=== PATIENT | male | born 1960 | race Caucasian/White ===

== ENCOUNTER 2017-01-26 10:44 | Inpatient (IN) | payer BC, MEDICAID ==
[2017-01-26] VITALS (15 sets, daily range): BP systolic 88–150; BP diastolic 46–77
[~2017-01-26] VITALS: Ht 175.3 cm; Wt 84.2 kg
[~2017-01-26 10:44] MED LIST: AUD NEB; BISA10S PR; FURO20 PO; INSNOV SQ; INSU100V12 SQ; IPRNEB IH; LACT30L PO; LORA0.5T2 PO; METO25XL PO; MOM30 PO; ONDA4 PO; PRED20 PO; SPIR25 PO; [UNRECOGNIZED DRUG - CODE] PO
[2017-01-26] MEDS ORDERED: PANTOPRAZOLE SODIUM 40 MG/VIAL IVP ONE (11:15)
[2017-01-26] MEDS ORDERED: SODIUM CHLORIDE 0.9% 1,000 ML IV ONE (11:15)
[2017-01-26 11:23] LABS: EOSINOPHILS % (AUTO) 0.1 % (1.0-6.0); HEMATOCRIT 22.7 % (41-53); HEMOGLOBIN 7.8 g/dL (13.5-17.5); LYMPHOCYTES # (AUTO) 1.4 K/uL (1.0-4.8); LYMPHOCYTES % (AUTO) 9.3 % (22.0-44.0); MEAN CORPUSCULAR HEMOGLOBIN 33.9 pg (26.0-34.0); MEAN CORPUSCULAR HGB CONC 34.3 G/dL (31.0-37.0); MEAN CORPUSCULAR VOLUME 99 fL (80-100); MONOCYTES # (AUTO) 1.3 K/uL (0.1-1.0); MONOCYTES % (AUTO) 8.4 % (2.0-9.0); NEUTROPHILS # (AUTO) 12.6 K/uL (1.8-7.7); NEUTROPHILS % (AUTO) 82.2 % (40.0-70.0); PLATELET COUNT (AUTO) 83 K/uL (150-450); RED CELL DISTRIBUTION WIDTH 19.8 % (11.5-14.5); WHITE BLOOD COUNT (AUTO) 15.3 K/uL (4.5-11.0)
[2017-01-26 11:24] LABS: RBC MORPHOLOGY COMMENT ABNORMAL RBC MORPH
[2017-01-26 11:37] LABS: INR 1.9 (0.9-1.1); PROTHROMBIN TIME 20.4 SEC (9.4-11.6)
[2017-01-26 11:38] LABS: ALBUMIN 1.6 g/dL (3.4-5.0); BILIRUBIN,TOTAL 6.9 mg/dL (0.1-1.0); CALCIUM, TOTAL 7.6 mg/dL (8.8-10.5); CREATININE 1.4 mg/dL (0.60-1.30); POTASSIUM 5.2 mmol/L (3.5-5.1)
[2017-01-26] MEDS ORDERED: ACETAMINOPHEN 325 MG TABLET PO PRN (13:00)
[2017-01-26] MEDS ORDERED: ONDANSETRON HCL 4 MG/2 ML VIAL IVP PRN ×2 (13:00→16:45)
[2017-01-26] MEDS ORDERED: 0.9% SODIUM CHLORIDE 10 ML SYRINGE IVP PRN (13:00)
[2017-01-26] MEDS ORDERED: DEXTROSE 50%-WATER 25 GM/50 ML SYRINGE IVP PRN (15:45)
[2017-01-26] MEDS ORDERED: ALBUTEROL SULFATE 2.5 MG/0.5 ML NEB SOLUTION NEB PRN (16:45)
[2017-01-26] MEDS ORDERED: ZOLPIDEM TARTRATE 5 MG TABLET PO PRN (16:45)
[2017-01-26] MEDS ORDERED: BISACODYL 10 MG RECTAL RECTAL SUPPOSITORY PR PRN (16:45)
[2017-01-26] MEDS ORDERED: MAGNESIUM HYDROXIDE SUSPENSION 30 ML UDCUP PO PRN (16:45)
[2017-01-26] MEDS ORDERED: IPRATROPIUM BROMIDE 0.5 MG/2.5 ML NEB SOLUTION NEB PRN (16:45)
[2017-01-26] MEDS ORDERED: SODIUM CHLORIDE 0.9% 250 ML IV ONE ×2 (17:15→17:47)
[2017-01-26] MEDS: PANTOPRAZOLE SODIUM 80 MG in SODIUM CHLORIDE 0.9% 100 ML IV SCH (17:22)
[2017-01-26] MEDS: INSULIN ASPART 100 UNITS/ML SQ PRN ×2 (17:25→21:44)
[2017-01-26] MEDS: CIPROFLOXACIN 400 MG/D5% WATER 200 ML IV SCH (17:46)
[2017-01-26] MEDS: OCTREOTIDE ACETATE 500 MCG in DEXTROSE 5%-WATER 97.5 ML IV SCH (17:46)
[2017-01-26] MEDS ORDERED: DiphenhydrAMINE HCL 50 MG/ML VIAL IVP ONE (18:00)
[2017-01-26 18:13] LABS: EOSINOPHILS % (AUTO) 0 % (1.0-6.0); HEMATOCRIT 21.8 % (41-53); HEMOGLOBIN 7.4 g/dL (13.5-17.5); LYMPHOCYTES # (AUTO) 1.3 K/uL (1.0-4.8); LYMPHOCYTES % (AUTO) 8.3 % (22.0-44.0); MEAN CORPUSCULAR HEMOGLOBIN 33.9 pg (26.0-34.0); MEAN CORPUSCULAR HGB CONC 34.1 G/dL (31.0-37.0); MEAN CORPUSCULAR VOLUME 100 fL (80-100); MONOCYTES # (AUTO) 0.8 K/uL (0.1-1.0); MONOCYTES % (AUTO) 5.5 % (2.0-9.0); NEUTROPHILS # (AUTO) 13.1 K/uL (1.8-7.7); PLATELET COUNT (AUTO) 82 K/uL (150-450); RED BLOOD CELL COUNT(AUTO) 2.19 MIL/uL (4.50-5.90); RED CELL DISTRIBUTION WIDTH 19.5 % (11.5-14.5); WHITE BLOOD COUNT (AUTO) 15.2 K/uL (4.5-11.0)
[2017-01-26 18:23] LABS: NEUTROPHILS % (AUTO) 86.2 % (40.0-70.0)
[2017-01-26 18:35] LABS: CALCIUM, TOTAL 7.6 mg/dL (8.8-10.5); CREATININE 1.25 mg/dL (0.60-1.30); POTASSIUM 5.4 mmol/L (3.5-5.1)
[2017-01-26 19:19] LABS: RBC MORPHOLOGY COMMENT ABNORMAL RBC MORPH
[2017-01-26] MEDS ORDERED: FUROSEMIDE 20 MG/2 ML VIAL IVP ONE (21:00)
[2017-01-26] MEDS ORDERED: LACTULOSE 20 GM/30 ML SOLUTION UDCUP PO SCH (21:00)
[2017-01-26] MEDS: LACTULOSE 20 GM/30 ML SOLUTION UDCUP PO SCH (21:25)
[2017-01-26] MEDS: RIFAXIMIN 550 MG TABLET PO SCH (22:39)
[2017-01-27] VITALS (9 sets, daily range): BP systolic 95–137; BP diastolic 53–81
[2017-01-27 01:53] LABS: GLUCOSE,POINT OF CARE 329 MG/DL (70-110)
[2017-01-27 01:53] LABS: GLUCOSE COMMENT 1 Received Meds; GLUCOSE,POINT OF CARE 226 MG/DL (70-110)
[2017-01-27] MEDS ORDERED: SODIUM CHLORIDE 0.9% 250 ML IV ONE (02:32)
[2017-01-27] MEDS: PANTOPRAZOLE SODIUM 80 MG in SODIUM CHLORIDE 0.9% 100 ML IV SCH ×3 (03:12→21:54)
[2017-01-27] MEDS: OCTREOTIDE ACETATE 500 MCG in DEXTROSE 5%-WATER 97.5 ML IV SCH (03:13)
[2017-01-27 05:28] LABS: HEMATOCRIT 26.9 % (41-53); HEMOGLOBIN 9.1 g/dL (13.5-17.5); MEAN CORPUSCULAR HEMOGLOBIN 33.3 pg (26.0-34.0); MEAN CORPUSCULAR HGB CONC 33.8 G/dL (31.0-37.0); MEAN CORPUSCULAR VOLUME 98 fL (80-100); PLATELET COUNT (AUTO) 69 K/uL (150-450); RED BLOOD CELL COUNT(AUTO) 2.73 MIL/uL (4.50-5.90); RED CELL DISTRIBUTION WIDTH 19.6 % (11.5-14.5); WHITE BLOOD COUNT (AUTO) 14.5 K/uL (4.5-11.0)
[2017-01-27 05:43] LABS: ALBUMIN 1.6 g/dL (3.4-5.0); BILIRUBIN,TOTAL 9.4 mg/dL (0.1-1.0); CALCIUM, TOTAL 7.6 mg/dL (8.8-10.5); CHOL/HDL RATIO 1.8 (4.2-7.3); CREATININE 1.28 mg/dL (0.60-1.30); MAGNESIUM 1.7 mg/dL (1.80-2.40); TOTAL PROTEIN, SERUM 4.9 g/dL (6.4-8.2)
[2017-01-27] MEDS: CIPROFLOXACIN 400 MG/D5% WATER 200 ML IV SCH ×2 (06:06→17:23)
[2017-01-27 07:11] LABS: HEMOGLOBIN A1C 6.9 % (4.5-6.2)
[2017-01-27] MEDS ORDERED: SODIUM CHLORIDE 0.9% 1,000 ML IV ONE (07:21)
[2017-01-27 07:26] LABS: BAND NEUTROPHILS % (MANUAL) 12 % (1-5); LYMPHOCYTES % (MANUAL) 19 % (22-44); RBC MORPHOLOGY COMMENT ABNORMAL RBC MORPH; TOTAL CELLS COUNTED 100
[2017-01-27] MEDS: RIFAXIMIN 550 MG TABLET PO SCH ×2 (08:45→22:24)
[2017-01-27] MEDS: LACTULOSE 20 GM/30 ML SOLUTION UDCUP PO SCH ×2 (08:46→21:51)
[2017-01-27] MEDS ORDERED: PHYTONADIONE 10 MG/1 ML AMP PO SCH (09:00)
[2017-01-27] MEDS ORDERED: PredniSONE 20 MG TABLET PO SCH (09:00)
[2017-01-27] MEDS ORDERED: FUROSEMIDE 40 MG/4 ML VIAL IVP SCH (09:00)
[2017-01-27] MEDS ORDERED: SPIRONOLACTONE 25 MG TABLET PO SCH (09:00)
[2017-01-27] MEDS ORDERED: FUROSEMIDE 20 MG/2 ML VIAL IVP SCH (10:15)
[2017-01-27] MEDS ORDERED: ALBUMIN HUMAN 25%-25GM/100ML 100 ML IV SCH (10:15)
[2017-01-27] MEDS ORDERED: MAGNESIUM SULFATE 1 GM in DEXTROSE 5%-WATER 50 ML IV ONE (10:15)
[2017-01-27 10:20] LABS: HEMATOCRIT 27.1 % (41-53); HEMOGLOBIN 9.5 g/dL (13.5-17.5); MEAN CORPUSCULAR HEMOGLOBIN 33.5 pg (26.0-34.0); MEAN CORPUSCULAR HGB CONC 34.9 G/dL (31.0-37.0); MEAN CORPUSCULAR VOLUME 96 fL (80-100); PLATELET COUNT (AUTO) 70 K/uL (150-450); RED BLOOD CELL COUNT(AUTO) 2.82 MIL/uL (4.50-5.90); WHITE BLOOD COUNT (AUTO) 15.6 K/uL (4.5-11.0)
[2017-01-27] MEDS: HYDROCORTISONE 2.5% 30 GM CREAM TP SCH ×3 (10:46→21:54)
[2017-01-27] MEDS: SPIRONOLACTONE 50 MG TABLET PO SCH (10:46)
[2017-01-27] MEDS: PrednisoLONE 15 MG/5 ML SOLUTION UDCUP PO SCH (10:46)
[2017-01-27 10:51] LABS: BAND NEUTROPHILS % (MANUAL) 12 % (1-5); LYMPHOCYTES % (MANUAL) 14 % (22-44); RBC MORPHOLOGY COMMENT ABNORMAL RBC MORPH; TOTAL CELLS COUNTED 100
[2017-01-27] MEDS: INSULIN ASPART 100 UNITS/ML SQ PRN ×3 (11:58→22:27)
[2017-01-27] MEDS ORDERED: LIDOCAINE HCL/PF 2% 5 ML VIAL INJ ONE ×2 (12:00)
[2017-01-27] MEDS ORDERED: ONDANSETRON HCL 4 MG/2 ML VIAL IVP ONE (12:00)
[2017-01-27] MEDS ORDERED: PROPOFOL 1% 20 ML VIAL IVP ONE (12:00)
[2017-01-27] MEDS ORDERED: METOCLOPRAMIDE HCL 5 MG/ML 2 ML VIAL IVP ONE (12:00)
[2017-01-27 12:33] LABS: APPEARANCE,URINE CLEAR (CLEAR); GLUCOSE, URINE (UA) NEGATIVE (NEGATIVE); KETONES,URINE NEGATIVE (NEGATIVE); LEUKOCYTE ESTERASE ,URINE NEGATIVE (NEGATIVE); OCCULT BLOOD,URINE MODERATE (NEGATIVE); PROTEIN,URINE NEGATIVE (NEGATIVE)
[2017-01-27 12:39] LABS: ADD UA MICROSCOPIC YES
[2017-01-27 12:56] LABS: RBC,URINE 26-50 /HPF (0-2); SQUAMOUS EPITHELIAL CELL,UR Few /LPF (None Seen); WBC,URINE 0-2 /HPF (0-5)
[2017-01-27 15:17] LABS: GLUCOSE COMMENT 1 Received Meds; GLUCOSE,POINT OF CARE 299 MG/DL (70-110)
[2017-01-27] MEDS: ALBUMIN HUMAN 25%-25GM/100ML 100 ML IV SCH (20:35)
[2017-01-27] MEDS ORDERED: INSULIN DETEMIR 100 UNITS/ML SQ SCH (21:45)
[2017-01-27] MEDS: FUROSEMIDE 20 MG/2 ML VIAL IVP SCH (21:52)
[2017-01-28] VITALS (8 sets, daily range): BP systolic 115–142; BP diastolic 61–76
[2017-01-28 05:23] LABS: CALCIUM, TOTAL 7.7 mg/dL (8.8-10.5); CREATININE 1.33 mg/dL (0.60-1.30); MAGNESIUM 1.9 mg/dL (1.80-2.40); PHOSPHORUS 3.2 mg/dL (2.5-4.9); POTASSIUM 5.1 mmol/L (3.5-5.1)
[2017-01-28] MEDS: CIPROFLOXACIN 400 MG/D5% WATER 200 ML IV SCH ×2 (05:46→17:44)
[2017-01-28] MEDS: INSULIN ASPART 100 UNITS/ML SQ PRN ×5 (05:47→21:27)
[2017-01-28 06:03] LABS: EOSINOPHILS % (AUTO) 0.1 % (1.0-6.0); HEMATOCRIT 24.4 % (41-53); HEMOGLOBIN 8.3 g/dL (13.5-17.5); LYMPHOCYTES % (AUTO) 9.9 % (22.0-44.0); MEAN CORPUSCULAR HEMOGLOBIN 33.4 pg (26.0-34.0); MEAN CORPUSCULAR HGB CONC 34.1 G/dL (31.0-37.0); MEAN CORPUSCULAR VOLUME 98 fL (80-100); MONOCYTES # (AUTO) 1.1 K/uL (0.1-1.0); MONOCYTES % (AUTO) 10.9 % (2.0-9.0); NEUTROPHILS # (AUTO) 8.3 K/uL (1.8-7.7); NEUTROPHILS % (AUTO) 79.1 % (40.0-70.0); PLATELET COUNT (AUTO) 66 K/uL (150-450); RED BLOOD CELL COUNT(AUTO) 2.49 MIL/uL (4.50-5.90); RED CELL DISTRIBUTION WIDTH 19.7 % (11.5-14.5); WHITE BLOOD COUNT (AUTO) 10.5 K/uL (4.5-11.0)
[2017-01-28 07:12] LABS: RBC MORPHOLOGY COMMENT ABNORMAL RBC MORPH
[2017-01-28 08:03] LABS: GLUCOSE COMMENT 1 Received Meds; GLUCOSE,POINT OF CARE 346 MG/DL (70-110)
[2017-01-28] MEDS: PANTOPRAZOLE SODIUM 80 MG in SODIUM CHLORIDE 0.9% 100 ML IV SCH (08:07)
[2017-01-28] MEDS: ALBUMIN HUMAN 25%-25GM/100ML 100 ML IV SCH ×2 (08:38→22:17)
[2017-01-28] MEDS: HYDROCORTISONE 2.5% 30 GM CREAM TP SCH ×3 (09:00→22:25)
[2017-01-28] MEDS: FUROSEMIDE 20 MG/2 ML VIAL IVP SCH ×2 (09:18→21:20)
[2017-01-28] MEDS: SPIRONOLACTONE 50 MG TABLET PO SCH (09:18)
[2017-01-28] MEDS: LACTULOSE 20 GM/30 ML SOLUTION UDCUP PO SCH ×3 (09:19→21:20)
[2017-01-28] MEDS: PrednisoLONE 15 MG/5 ML SOLUTION UDCUP PO SCH (09:20)
[2017-01-28] MEDS: RIFAXIMIN 550 MG TABLET PO SCH ×2 (09:20→21:19)
[2017-01-28 11:53] LABS: ALBUMIN 1.9 g/dL (3.4-5.0); BILIRUBIN,TOTAL 9.6 mg/dL (0.1-1.0); TOTAL PROTEIN, SERUM 5.2 g/dL (6.4-8.2)
[2017-01-28 11:55] LABS: BILIRUBIN,DIRECT 4.1 mg/dL (0.00-0.20)
[2017-01-28] MEDS: PANTOPRAZOLE SODIUM 40 MG/VIAL IVP SCH ×2 (12:09→21:20)
[2017-01-28 15:37] LABS: GLUCOSE,POINT OF CARE 218 MG/DL (70-110)
[2017-01-28 15:37] LABS: GLUCOSE COMMENT 1 Received Meds; GLUCOSE,POINT OF CARE 488 MG/DL (70-110)
[2017-01-28 15:37] LABS: GLUCOSE COMMENT 1 Received Meds; GLUCOSE,POINT OF CARE 320 MG/DL (70-110)
[2017-01-28 15:37] LABS: GLUCOSE,POINT OF CARE 266 MG/DL (70-110)
[2017-01-28] MEDS ORDERED: SODIUM CHLORIDE 0.9% 100 ML ONE (17:33)
[2017-01-28 19:53] LABS: GLUCOSE COMMENT 1 Received Meds; GLUCOSE,POINT OF CARE 326 MG/DL (70-110)
[2017-01-28] MEDS: INSULIN DETEMIR 100 UNITS/ML SQ SCH (22:25)
[2017-01-28 23:38] LABS: HEMATOCRIT 22.9 % (41-53); HEMOGLOBIN 7.8 g/dL (13.5-17.5)
[2017-01-29] VITALS (39 sets, daily range): BP systolic 86–135; BP diastolic 41–67
[2017-01-29] MEDS ORDERED: PHYTONADIONE 10 MG/1 ML AMP IM ONE (02:00)
[2017-01-29] MEDS ORDERED: PANTOPRAZOLE SODIUM 80 MG in SODIUM CHLORIDE 0.9% 50 ML IV ONE (03:00)
[2017-01-29 03:21] LABS: HEMATOCRIT 20.5 % (41-53)
[2017-01-29] MEDS ORDERED: SODIUM CHLORIDE 0.9% 500 ML IV ONE (04:23)
[2017-01-29] MEDS ORDERED: SODIUM CHLORIDE 0.9% 250 ML IV ONE ×2 (04:23→13:22)
[2017-01-29] MEDS: PANTOPRAZOLE SODIUM 80 MG in SODIUM CHLORIDE 0.9% 100 ML IV SCH ×3 (04:32→23:19)
[2017-01-29 06:17] LABS: MEAN CORPUSCULAR HEMOGLOBIN 33.4 pg (26.0-34.0); MEAN CORPUSCULAR HGB CONC 34.4 G/dL (31.0-37.0); MEAN CORPUSCULAR VOLUME 97 fL (80-100); PLATELET COUNT (AUTO) 88 K/uL (150-450); RED CELL DISTRIBUTION WIDTH 19.8 % (11.5-14.5); WHITE BLOOD COUNT (AUTO) 10.9 K/uL (4.5-11.0)
[2017-01-29 06:33] LABS: ALANINE AMINOTRANSFERASE 39 U/L (12-78); ANION GAP 6 mmol/L (8-16); ASPARTATE AMINOTRANSFERASE 39 U/L (15-37); BILIRUBIN,TOTAL 7.4 mg/dL (0.1-1.0); CARBON DIOXIDE 24 mmol/L (22-29); CHLORIDE 97 mmol/L (98-107); CREATININE 1.15 mg/dL (0.60-1.30); GLOMERULAR FILTR. RATE CALC > 60 mL/min (>60); POTASSIUM 4.2 mmol/L (3.5-5.1); SODIUM SERUM 127 mmol/L (136-145); TOTAL PROTEIN, SERUM 4.8 g/dL (6.4-8.2); UREA NITROGEN, BLOOD 27 mg/dL (7-18)
[2017-01-29 07:04] LABS: HEMATOCRIT 18.4 % (41-53); HEMOGLOBIN 6.3 g/dL (13.5-17.5)
[2017-01-29] MEDS: CIPROFLOXACIN 400 MG/D5% WATER 200 ML IV SCH ×2 (07:32→17:17)
[2017-01-29] MEDS: INSULIN ASPART 100 UNITS/ML SQ PRN ×4 (07:47→20:22)
[2017-01-29] MEDS ORDERED: EPINEPHrine 1:10,000 [1 MG/10 ML] SYRINGE ONE (08:30)
[2017-01-29] MEDS: ALBUMIN HUMAN 25%-25GM/100ML 100 ML IV SCH ×2 (08:41→20:12)
[2017-01-29] MEDS ORDERED: SODIUM CHLORIDE 0.9% 1,000 ML IV ONE (08:49)
[2017-01-29 08:57] LABS: BAND NEUTROPHILS % (MANUAL) 8 % (1-5); EOSINOPHILS % (MANUAL) 1 % (1-6); LYMPHOCYTES % (MANUAL) 13 % (22-44); METAMYELOCYTES % 5 % (0-0); TOTAL CELLS COUNTED 100
[2017-01-29] MEDS: FUROSEMIDE 20 MG/2 ML VIAL IVP SCH ×2 (08:57→20:13)
[2017-01-29 08:58] LABS: RBC MORPHOLOGY COMMENT ABNORMAL R
[2017-01-29] MEDS: HYDROCORTISONE 2.5% 30 GM CREAM TP SCH ×3 (09:00→20:13)
[2017-01-29 09:08] LABS: INR 1.8 (0.9-1.1); PROTHROMBIN TIME 18.8 SEC (9.4-11.6)
[2017-01-29 10:43] LABS: GLUCOSE COMMENT 1 Received Meds; GLUCOSE,POINT OF CARE 331 MG/DL (70-110)
[2017-01-29] MEDS: PrednisoLONE 15 MG/5 ML SOLUTION UDCUP PO SCH (11:06)
[2017-01-29] MEDS: PHYTONADIONE 10 MG/1 ML AMP PO SCH (11:06)
[2017-01-29] MEDS: SPIRONOLACTONE 50 MG TABLET PO SCH (11:06)
[2017-01-29] MEDS: RIFAXIMIN 550 MG TABLET PO SCH ×2 (11:06→20:13)
[2017-01-29] MEDS: LACTULOSE 20 GM/30 ML SOLUTION UDCUP PO SCH ×3 (11:06→20:13)
[2017-01-29] MEDS ORDERED: 0.9% SODIUM CHLORIDE 10 ML VIAL IVP ONE (12:00)
[2017-01-29] MEDS ORDERED: PHENYLEPHRINE HCL 10 MG/ML VIAL IVP ONE (12:00)
[2017-01-29] MEDS ORDERED: PROPOFOL 1% 20 ML VIAL IVP ONE (12:00)
[2017-01-29 12:19] LABS: HEMATOCRIT 18.3 % (41-53); HEMOGLOBIN 6.5 g/dL (13.5-17.5)
[2017-01-29 12:29] LABS: INR 1.6 (0.9-1.1); PROTHROMBIN TIME 17.1 SEC (9.4-11.6)
[2017-01-29] MEDS ORDERED: PEG 3350/NA SULF,BICARB,CL/KCL 4000 ML SOLUTION PO ONE (16:00)
[2017-01-29 20:14] LABS: HEMATOCRIT 24.1 % (41-53); HEMOGLOBIN 8.2 g/dL (13.5-17.5)
[2017-01-29] MEDS: INSULIN DETEMIR 100 UNITS/ML SQ SCH (20:22)
[2017-01-29 22:37] LABS: GLUCOSE,POINT OF CARE 420 MG/DL (70-110)
[2017-01-30] VITALS (32 sets, daily range): BP systolic 82–169; BP diastolic 40–82
[2017-01-30 05:50] LABS: EOSINOPHILS % (AUTO) 0.2 % (1.0-6.0); HEMATOCRIT 23.8 % (41-53); HEMOGLOBIN 8.2 g/dL (13.5-17.5); LYMPHOCYTES # (AUTO) 0.9 K/uL (1.0-4.8); LYMPHOCYTES % (AUTO) 11.3 % (22.0-44.0); MEAN CORPUSCULAR HEMOGLOBIN 32.4 pg (26.0-34.0); MEAN CORPUSCULAR HGB CONC 34.6 G/dL (31.0-37.0); MEAN CORPUSCULAR VOLUME 94 fL (80-100); MONOCYTES # (AUTO) 0.8 K/uL (0.1-1.0); MONOCYTES % (AUTO) 10.8 % (2.0-9.0); NEUTROPHILS # (AUTO) 6.1 K/uL (1.8-7.7); NEUTROPHILS % (AUTO) 77.7 % (40.0-70.0); RED BLOOD CELL COUNT(AUTO) 2.55 MIL/uL (4.50-5.90); RED CELL DISTRIBUTION WIDTH 17.7 % (11.5-14.5); WHITE BLOOD COUNT (AUTO) 7.8 K/uL (4.5-11.0)
[2017-01-30 05:55] LABS: INR 1.8 (0.9-1.1); PROTHROMBIN TIME 19.2 SEC (9.4-11.6)
[2017-01-30] MEDS: CIPROFLOXACIN 400 MG/D5% WATER 200 ML IV SCH ×2 (06:04→18:02)
[2017-01-30] MEDS: INSULIN ASPART 100 UNITS/ML SQ PRN ×4 (06:06→21:58)
[2017-01-30 06:15] LABS: ANION GAP 5 mmol/L (8-16); CALCIUM, TOTAL 8.1 mg/dL (8.8-10.5); CARBON DIOXIDE 30 mmol/L (22-29); CHLORIDE 99 mmol/L (98-107); GLOMERULAR FILTR. RATE CALC > 60 mL/min (>60); POTASSIUM 3.7 mmol/L (3.5-5.1); SODIUM SERUM 134 mmol/L (136-145); UREA NITROGEN, BLOOD 14 mg/dL (7-18)
[2017-01-30 06:58] LABS: GLUCOSE,POINT OF CARE 167 MG/DL (70-110)
[2017-01-30] MEDS ORDERED: SODIUM CHLORIDE 0.9% 500 ML IV ONE (07:07)
[2017-01-30 07:22] LABS: GLUCOSE COMMENT 1 Received Meds; GLUCOSE,POINT OF CARE 306 MG/DL (70-110)
[2017-01-30 07:22] LABS: GLUCOSE,POINT OF CARE 288 MG/DL (70-110)
[2017-01-30 07:22] LABS: GLUCOSE COMMENT 1 Received Meds; GLUCOSE,POINT OF CARE 243 MG/DL (70-110)
[2017-01-30 07:22] LABS: GLUCOSE COMMENT 1 Received Meds; GLUCOSE,POINT OF CARE 294 MG/DL (70-110)
[2017-01-30] MEDS: ALBUMIN HUMAN 25%-25GM/100ML 100 ML IV SCH ×2 (08:42→21:51)
[2017-01-30] MEDS: FUROSEMIDE 20 MG/2 ML VIAL IVP SCH ×2 (08:42→21:52)
[2017-01-30] MEDS: SPIRONOLACTONE 50 MG TABLET PO SCH (08:43)
[2017-01-30] MEDS: LACTULOSE 20 GM/30 ML SOLUTION UDCUP PO SCH ×3 (08:43→21:00)
[2017-01-30] MEDS: PrednisoLONE 15 MG/5 ML SOLUTION UDCUP PO SCH (08:44)
[2017-01-30] MEDS: RIFAXIMIN 550 MG TABLET PO SCH ×2 (08:44→21:00)
[2017-01-30] MEDS: PANTOPRAZOLE SODIUM 80 MG in SODIUM CHLORIDE 0.9% 100 ML IV SCH ×2 (08:44→18:30)
[2017-01-30] MEDS: HYDROCORTISONE 2.5% 30 GM CREAM TP SCH ×3 (08:45→21:00)
[2017-01-30] MEDS: PHYTONADIONE 10 MG/1 ML AMP PO SCH (09:21)
[2017-01-30 09:48] LABS: PLATELET COUNT (AUTO) 45 K/uL (150-450)
[2017-01-30 09:52] LABS: RBC MORPHOLOGY COMMENT ABNORMAL RBC MORPH
[2017-01-30 11:35] LABS: HEMATOCRIT 19.4 % (41-53); HEMOGLOBIN 6.8 g/dL (13.5-17.5)
[2017-01-30] MEDS ORDERED: FentaNYL CITRATE-PF 100 MCG/2 ML VIAL IVP ONE (12:00)
[2017-01-30] MEDS ORDERED: MIDAZOLAM HCL 2 MG/2 ML VIAL IVP ONE (12:00)
[2017-01-30] MEDS ORDERED: SODIUM CHLORIDE 0.9% 250 ML IV ONE ×3 (12:20→20:37)
[2017-01-30] MEDS ORDERED: PHYTONADIONE 10 MG/1 ML AMP PO ONE (14:30)
[2017-01-30] MEDS ORDERED: SODIUM CHLORIDE 0.9% 1,000 ML IV ONE (15:44)
[2017-01-30 16:13] LABS: HEMATOCRIT 17.1 % (41-53)
[2017-01-30 16:19] LABS: GLUCOSE COMMENT 1 Received Meds; GLUCOSE,POINT OF CARE 217 MG/DL (70-110)
[2017-01-30] MEDS ORDERED: HEPARIN SODIUM 1000 UNITS/NS 500 ML ONE (17:32)
[2017-01-30] MEDS ORDERED: RINGERS SOLUTION,LACTATED 1,000 ML IV ONE (18:31)
[2017-01-30 18:53] LABS: BASOPHILS % (AUTO) 0.1 % (0.0-2.0); EOSINOPHILS % (AUTO) 0.1 % (1.0-6.0); LYMPHOCYTES # (AUTO) 0.8 K/uL (1.0-4.8); LYMPHOCYTES % (AUTO) 10.1 % (22.0-44.0); MEAN CORPUSCULAR HEMOGLOBIN 32.3 pg (26.0-34.0); MEAN CORPUSCULAR HGB CONC 35.6 G/dL (31.0-37.0); MEAN CORPUSCULAR VOLUME 91 fL (80-100); MONOCYTES # (AUTO) 0.6 K/uL (0.1-1.0); MONOCYTES % (AUTO) 6.9 % (2.0-9.0); NEUTROPHILS # (AUTO) 6.9 K/uL (1.8-7.7); NEUTROPHILS % (AUTO) 82.8 % (40.0-70.0); PLATELET COUNT (AUTO) 50 K/uL (150-450); RED BLOOD CELL COUNT(AUTO) 2.02 MIL/uL (4.50-5.90); WHITE BLOOD COUNT (AUTO) 8.3 K/uL (4.5-11.0)
[2017-01-30 18:56] LABS: ABG BASE EXCESS -1.4 mmol/L (-2.0-3.0); ABG HCO3 23.5 mmol/L (22.0-26.0); ABG PCO2 27 mmHg (35-45); ABG PH 7.526 (7.35-7.450); ALLEN TEST, BLOOD GAS POS.; TEMPERATURE, FAHRENHEIT, BG 98.5 FAHREN (96.0-98.6)
[2017-01-30 18:58] LABS: ABG OXYHEMOGLOBIN 95.7 % (94.0-100.0)
[2017-01-30 18:59] LABS: ABG A-A DIFF O2 67.7 mmHg (10-20.0)
[2017-01-30 19:01] LABS: ANION GAP 11 mmol/L (8-16); CALCIUM, TOTAL 7.9 mg/dL (8.8-10.5); CARBON DIOXIDE 25 mmol/L (22-29); CHLORIDE 99 mmol/L (98-107); GLOMERULAR FILTR. RATE CALC > 60 mL/min (>60); POTASSIUM 4.2 mmol/L (3.5-5.1); SODIUM SERUM 135 mmol/L (136-145); UREA NITROGEN, BLOOD 18 mg/dL (7-18)
[2017-01-30 19:04] LABS: HEMATOCRIT 18.3 % (41-53); HEMOGLOBIN 6.5 g/dL (13.5-17.5)
[2017-01-30 19:08] LABS: ALANINE AMINOTRANSFERASE 31 U/L (12-78); ALBUMIN 2.4 g/dL (3.4-5.0); ASPARTATE AMINOTRANSFERASE 36 U/L (15-37); BILIRUBIN,TOTAL 6.9 mg/dL (0.1-1.0); TOTAL PROTEIN, SERUM 4.4 g/dL (6.4-8.2)
[2017-01-30 19:21] LABS: INR 1.7 (0.9-1.1); PARTIAL THROMBOPLASTIN TIME 40 SEC (25-35); PROTHROMBIN TIME 18.3 SEC (9.4-11.6)
[2017-01-30 19:34] LABS: RBC MORPHOLOGY COMMENT ABNORMAL RBC MORPH
[2017-01-30] MEDS ORDERED: THROMBIN, BOVINE 20000 UNITS/VIAL POWDER TP ONE (19:39)
[2017-01-30] MEDS ORDERED: GELATIN SPONGE,ABSORBABLE 100 MM TP ONE (19:39)
[2017-01-30] MEDS ORDERED: LIDOCAINE HCL 2% 30 ML JELLY ONE (19:41)
[2017-01-30 20:31] LABS: FIBRINOGEN 91 mg/dL (200-400)
[2017-01-30] MEDS: INSULIN DETEMIR 100 UNITS/ML SQ SCH (21:53)
[2017-01-31] VITALS (16 sets, daily range): BP systolic 95–136; BP diastolic 46–70
[2017-01-31 02:02] LABS: GLUCOSE,POINT OF CARE 236 MG/DL (70-110)
[2017-01-31 02:02] LABS: GLUCOSE,POINT OF CARE 252 MG/DL (70-110)
[2017-01-31] MEDS: PANTOPRAZOLE SODIUM 80 MG in SODIUM CHLORIDE 0.9% 100 ML IV SCH (05:14)
[2017-01-31] MEDS: INSULIN ASPART 100 UNITS/ML SQ PRN ×4 (05:15→21:32)
[2017-01-31 05:35] LABS: ANION GAP 7 mmol/L (8-16); CARBON DIOXIDE 29 mmol/L (22-29); CHLORIDE 100 mmol/L (98-107); CREATININE 1.03 mg/dL (0.60-1.30); GLOMERULAR FILTR. RATE CALC > 60 mL/min (>60); POTASSIUM 3.8 mmol/L (3.5-5.1); SODIUM SERUM 136 mmol/L (136-145); UREA NITROGEN, BLOOD 14 mg/dL (7-18)
[2017-01-31] MEDS: CIPROFLOXACIN 400 MG/D5% WATER 200 ML IV SCH ×2 (05:59→19:12)
[2017-01-31 06:53] LABS: BASOPHILS # (AUTO) 0.01 K/uL (0.00-0.20); BASOPHILS % (AUTO) 0.1 % (0.0-2.0); EOSINOPHILS # (AUTO) 0.02 K/uL (0.00-0.70); EOSINOPHILS % (AUTO) 0.19 % (1.0-6.0); LYMPHOCYTES # (AUTO) 1.2 K/uL (1.0-4.8); LYMPHOCYTES % (AUTO) 14.4 % (22.0-44.0); MEAN CORPUSCULAR HEMOGLOBIN 30.4 pg (26.0-34.0); MEAN CORPUSCULAR HGB CONC 33.7 G/dL (31.0-37.0); MEAN CORPUSCULAR VOLUME 90 fL (80-100); MONOCYTES # (AUTO) 0.9 K/uL (0.1-1.0); MONOCYTES % (AUTO) 10.5 % (2.0-9.0); NEUTROPHILS # (AUTO) 6.3 K/uL (1.8-7.7); NEUTROPHILS % (AUTO) 74.8 % (40.0-70.0); PLATELET COUNT (AUTO) 30 K/uL (150-450); RED BLOOD CELL COUNT(AUTO) 2.28 MIL/uL (4.50-5.90); RED CELL DISTRIBUTION WIDTH 18.3 % (11.5-14.5); WHITE BLOOD COUNT (AUTO) 8.4 K/uL (4.5-11.0)
[2017-01-31] MEDS ORDERED: 0.9% SODIUM CHLORIDE 10 ML VIAL IVP ONE (06:56)
[2017-01-31] MEDS ORDERED: SUCCINYLCHOLINE CHLORIDE 20 MG/ML 10 ML VIAL IVP ONE (06:56)
[2017-01-31] MEDS ORDERED: LIDOCAINE HCL/PF 2% 5 ML VIAL INJ ONE (06:56)
[2017-01-31] MEDS ORDERED: PROPOFOL 1% 20 ML VIAL IVP ONE (06:56)
[2017-01-31 07:18] LABS: HEMATOCRIT 20.6 % (41-53)
[2017-01-31] MEDS: PrednisoLONE 15 MG/5 ML SOLUTION UDCUP PO SCH (08:26)
[2017-01-31] MEDS: LACTULOSE 20 GM/30 ML SOLUTION UDCUP PO SCH ×2 (08:26→21:43)
[2017-01-31] MEDS: SPIRONOLACTONE 50 MG TABLET PO SCH (08:27)
[2017-01-31] MEDS: RIFAXIMIN 550 MG TABLET PO SCH ×2 (08:27→21:43)
[2017-01-31] MEDS: FUROSEMIDE 20 MG/2 ML VIAL IVP SCH (08:27)
[2017-01-31] MEDS: ALBUMIN HUMAN 25%-25GM/100ML 100 ML IV SCH (08:27)
[2017-01-31] MEDS: HYDROCORTISONE 2.5% 30 GM CREAM TP SCH ×2 (08:28→16:00)
[2017-01-31 08:46] LABS: RBC MORPHOLOGY COMMENT ABNORMAL RBC MORPH
[2017-01-31] MEDS: ALBUMIN HUMAN 25%-50GM/200ML 200 ML IV SCH ×2 (09:45→23:02)
[2017-01-31 11:42] LABS: BASOPHILS # (AUTO) 0.02 K/uL (0.00-0.20); BASOPHILS % (AUTO) 0.2 % (0.0-2.0); EOSINOPHILS # (AUTO) 0.02 K/uL (0.00-0.70); EOSINOPHILS % (AUTO) 0.21 % (1.0-6.0); HEMOGLOBIN 7.1 g/dL (13.5-17.5); LYMPHOCYTES # (AUTO) 0.9 K/uL (1.0-4.8); LYMPHOCYTES % (AUTO) 8.3 % (22.0-44.0); MEAN CORPUSCULAR HGB CONC 34.7 G/dL (31.0-37.0); MEAN CORPUSCULAR VOLUME 89 fL (80-100); MONOCYTES # (AUTO) 0.9 K/uL (0.1-1.0); MONOCYTES % (AUTO) 8.3 % (2.0-9.0); NEUTROPHILS # (AUTO) 8.5 K/uL (1.8-7.7); PLATELET COUNT (AUTO) 34 K/uL (150-450); RED BLOOD CELL COUNT(AUTO) 2.29 MIL/uL (4.50-5.90); WHITE BLOOD COUNT (AUTO) 10.3 K/uL (4.5-11.0)
[2017-01-31 11:47] LABS: HEMATOCRIT 20.4 % (41-53)
[2017-01-31] MEDS ORDERED: FUROSEMIDE 20 MG/2 ML VIAL IVP ONE (12:00)
[2017-01-31 12:05] LABS: RBC MORPHOLOGY COMMENT ABNORMAL RBC MORPH
[2017-01-31 12:06] LABS: INR 1.8 (0.9-1.1); PROTHROMBIN TIME 19.4 SEC (9.4-11.6)
[2017-01-31] MEDS ORDERED: SODIUM CHLORIDE 0.9% 250 ML IV ONE (12:22)
[2017-01-31] MEDS ORDERED: IOHEXOL 300 MG/ML 100 ML VIAL ONE ×2 (15:28→17:51)
[2017-01-31] MEDS ORDERED: LIDOCAINE HCL/PF 1% 30 ML VIAL ONE (15:28)
[2017-01-31] MEDS ORDERED: HEPARIN SODIUM 1000 UNITS/NS 500 ML ONE (15:28)
[2017-01-31] MEDS ORDERED: FentaNYL CITRATE-PF 100 MCG/2 ML VIAL ONE (16:21)
[2017-01-31] MEDS ORDERED: MIDAZOLAM HCL 2 MG/2 ML VIAL ONE (16:22)
[2017-01-31] MEDS ORDERED: GELATIN SPONGE,ABSORBABLE 12-7 MM TP ONE (16:22)
[2017-01-31] MEDS ORDERED: IOHEXOL 300 MG/ML 50 ML VIAL ONE ×2 (17:40→18:15)
[2017-01-31 20:18] LABS: HEMATOCRIT 23.8 % (41-53); HEMOGLOBIN 8.2 g/dL (13.5-17.5)
[2017-01-31] MEDS: INSULIN DETEMIR 100 UNITS/ML SQ SCH (21:29)
[2017-01-31] MEDS: FUROSEMIDE 40 MG/4 ML VIAL IVP SCH (21:43)
[2017-01-31 23:23] LABS: GLUCOSE,POINT OF CARE 279 MG/DL (70-110)
[2017-01-31 23:23] LABS: GLUCOSE,POINT OF CARE 262 MG/DL (70-110)
[2017-01-31 23:23] LABS: GLUCOSE,POINT OF CARE 259 MG/DL (70-110)
[2017-02-01] VITALS (30 sets, daily range): BP systolic 100–136; BP diastolic 53–79
[2017-02-01] MEDS: HYDROCORTISONE 2.5% 30 GM CREAM TP SCH (01:14)
[2017-02-01] MEDS ORDERED: SODIUM CHLORIDE 0.9% 250 ML IV ONE ×3 (01:28→20:08)
[2017-02-01] MEDS: CIPROFLOXACIN 400 MG/D5% WATER 200 ML IV SCH ×2 (05:43→17:20)
[2017-02-01 05:53] LABS: ANION GAP 8 mmol/L (8-16); CALCIUM, TOTAL 8.1 mg/dL (8.8-10.5); CARBON DIOXIDE 29 mmol/L (22-29); CHLORIDE 97 mmol/L (98-107); CREATININE 0.94 mg/dL (0.60-1.30); GLOMERULAR FILTR. RATE CALC > 60 mL/min (>60); POTASSIUM 3.5 mmol/L (3.5-5.1); SODIUM SERUM 134 mmol/L (136-145); UREA NITROGEN, BLOOD 12 mg/dL (7-18)
[2017-02-01 06:42] LABS: GLUCOSE,POINT OF CARE 229 MG/DL (70-110)
[2017-02-01] MEDS: INSULIN ASPART 100 UNITS/ML SQ PRN ×4 (06:44→21:16)
[2017-02-01 07:02] LABS: GLUCOSE,POINT OF CARE 224 MG/DL (70-110)
[2017-02-01 07:46] LABS: BASOPHILS # (AUTO) 0.01 K/uL (0.00-0.20); BASOPHILS % (AUTO) 0.1 % (0.0-2.0); EOSINOPHILS # (AUTO) 0.01 K/uL (0.00-0.70); EOSINOPHILS % (AUTO) 0.11 % (1.0-6.0); HEMATOCRIT 22.7 % (41-53); HEMOGLOBIN 7.7 g/dL (13.5-17.5); LYMPHOCYTES # (AUTO) 0.9 K/uL (1.0-4.8); LYMPHOCYTES % (AUTO) 9.4 % (22.0-44.0); MEAN CORPUSCULAR HEMOGLOBIN 30.3 pg (26.0-34.0); MEAN CORPUSCULAR HGB CONC 33.9 G/dL (31.0-37.0); MEAN CORPUSCULAR VOLUME 89 fL (80-100); MONOCYTES # (AUTO) 0.8 K/uL (0.1-1.0); MONOCYTES % (AUTO) 8.3 % (2.0-9.0); NEUTROPHILS # (AUTO) 8.1 K/uL (1.8-7.7); NEUTROPHILS % (AUTO) 82.1 % (40.0-70.0); PLATELET COUNT (AUTO) 25 K/uL (150-450); RED BLOOD CELL COUNT(AUTO) 2.54 MIL/uL (4.50-5.90); RED CELL DISTRIBUTION WIDTH 18.7 % (11.5-14.5); WHITE BLOOD COUNT (AUTO) 9.9 K/uL (4.5-11.0)
[2017-02-01] MEDS: LACTULOSE 20 GM/30 ML SOLUTION UDCUP PO SCH ×2 (08:21→20:53)
[2017-02-01] MEDS: PrednisoLONE 15 MG/5 ML SOLUTION UDCUP PO SCH (08:21)
[2017-02-01] MEDS: ALBUMIN HUMAN 25%-50GM/200ML 200 ML IV SCH ×2 (08:22→20:56)
[2017-02-01] MEDS: FUROSEMIDE 40 MG/4 ML VIAL IVP SCH ×2 (08:22→20:53)
[2017-02-01] MEDS: SPIRONOLACTONE 50 MG TABLET PO SCH (08:22)
[2017-02-01] MEDS: RIFAXIMIN 550 MG TABLET PO SCH ×2 (08:22→20:53)
[2017-02-01] MEDS ORDERED: BISACODYL 5 MG EC TABLET PO PRN (09:45)
[2017-02-01 10:14] LABS: RBC MORPHOLOGY COMMENT ABNORMAL RBC MORPH
[2017-02-01 19:06] LABS: HEMATOCRIT 18.6 % (41-53); HEMOGLOBIN 6.4 g/dL (13.5-17.5)
[2017-02-01] MEDS: INSULIN DETEMIR 100 UNITS/ML SQ SCH (21:15)
[2017-02-01 21:32] LABS: GLUCOSE COMMENT 1 Received Meds; GLUCOSE,POINT OF CARE 337 MG/DL (70-110)
[2017-02-01 21:32] LABS: GLUCOSE COMMENT 1 Received Meds; GLUCOSE,POINT OF CARE 362 MG/DL (70-110)
[2017-02-02] VITALS (10 sets, daily range): BP systolic 95–136; BP diastolic 7–67
[2017-02-02 00:14] LABS: GLUCOSE,POINT OF CARE 301 MG/DL (70-110)
[2017-02-02] MEDS ORDERED: SODIUM CHLORIDE 0.9% 250 ML IV ONE ×2 (03:30→18:12)
[2017-02-02] MEDS: CIPROFLOXACIN 400 MG/D5% WATER 200 ML IV SCH ×2 (05:22→18:51)
[2017-02-02 05:30] LABS: INR 2.2 (0.9-1.1)
[2017-02-02 05:35] LABS: EOSINOPHILS % (AUTO) 0.1 % (1.0-6.0); HEMOGLOBIN 7.9 g/dL (13.5-17.5); LYMPHOCYTES # (AUTO) 0.7 K/uL (1.0-4.8); LYMPHOCYTES % (AUTO) 8.1 % (22.0-44.0); MEAN CORPUSCULAR HEMOGLOBIN 31.2 pg (26.0-34.0); MEAN CORPUSCULAR HGB CONC 34.5 G/dL (31.0-37.0); MEAN CORPUSCULAR VOLUME 90 fL (80-100); MONOCYTES # (AUTO) 0.6 K/uL (0.1-1.0); MONOCYTES % (AUTO) 7.2 % (2.0-9.0); NEUTROPHILS # (AUTO) 6.9 K/uL (1.8-7.7); NEUTROPHILS % (AUTO) 84.6 % (40.0-70.0); PLATELET COUNT (AUTO) 23 K/uL (150-450); RED BLOOD CELL COUNT(AUTO) 2.54 MIL/uL (4.50-5.90); RED CELL DISTRIBUTION WIDTH 19.1 % (11.5-14.5); WHITE BLOOD COUNT (AUTO) 8.2 K/uL (4.5-11.0)
[2017-02-02] MEDS: INSULIN ASPART 100 UNITS/ML SQ PRN ×4 (05:37→21:08)
[2017-02-02 05:44] LABS: ALANINE AMINOTRANSFERASE 29 U/L (12-78); ALBUMIN 3.5 g/dL (3.4-5.0); ANION GAP 6 mmol/L (8-16); ASPARTATE AMINOTRANSFERASE 32 U/L (15-37); BILIRUBIN,TOTAL 8.3 mg/dL (0.1-1.0); CARBON DIOXIDE 32 mmol/L (22-29); CHLORIDE 91 mmol/L (98-107); GLOMERULAR FILTR. RATE CALC > 60 mL/min (>60); PHOSPHORUS 2.4 mg/dL (2.5-4.9); POTASSIUM 3.1 mmol/L (3.5-5.1); SODIUM SERUM 129 mmol/L (136-145); UREA NITROGEN, BLOOD 11 mg/dL (7-18)
[2017-02-02 07:42] LABS: RBC MORPHOLOGY COMMENT ABNORMAL RBC MORPH
[2017-02-02] MEDS: RIFAXIMIN 550 MG TABLET PO SCH ×2 (08:54→21:07)
[2017-02-02] MEDS: SPIRONOLACTONE 50 MG TABLET PO SCH (08:54)
[2017-02-02] MEDS: FUROSEMIDE 40 MG/4 ML VIAL IVP SCH ×2 (08:56→21:00)
[2017-02-02] MEDS: ALBUMIN HUMAN 25%-50GM/200ML 200 ML IV SCH (08:56)
[2017-02-02] MEDS: LACTULOSE 20 GM/30 ML SOLUTION UDCUP PO SCH ×2 (08:59→21:00)
[2017-02-02] MEDS ORDERED: MAGNESIUM SULFATE 2 GM in DEXTROSE 5%-WATER 50 ML IV ONE (09:30)
[2017-02-02] MEDS: POTASSIUM CHL 10 MEQ/WATER 50 ML IV SCH ×4 (10:16→17:45)
[2017-02-02] MEDS: PrednisoLONE 15 MG/5 ML SOLUTION UDCUP PO SCH (10:17)
[2017-02-02] MEDS: HYDROCORTISONE 2.5% 30 GM CREAM TP SCH ×2 (16:00→21:11)
[2017-02-02] MEDS: PANTOPRAZOLE SODIUM 80 MG in SODIUM CHLORIDE 0.9% 100 ML IV SCH (18:50)
[2017-02-02 19:14] LABS: GLUCOSE,POINT OF CARE 279 MG/DL (70-110)
[2017-02-02 19:14] LABS: GLUCOSE,POINT OF CARE 266 MG/DL (70-110)
[2017-02-02] MEDS: INSULIN DETEMIR 100 UNITS/ML SQ SCH (21:10)
[2017-02-02] MEDS: ALBUMIN HUMAN 25%-25GM/100ML 100 ML IV SCH (22:11)
[2017-02-03] VITALS (17 sets, daily range): BP systolic 107–131; BP diastolic 52–76
[2017-02-03] MEDS: PANTOPRAZOLE SODIUM 80 MG in SODIUM CHLORIDE 0.9% 100 ML IV SCH ×2 (03:36→14:45)
[2017-02-03] MEDS: CIPROFLOXACIN 400 MG/D5% WATER 200 ML IV SCH ×2 (05:18→18:35)
[2017-02-03] MEDS: INSULIN ASPART 100 UNITS/ML SQ PRN ×3 (05:49→17:40)
[2017-02-03 08:44] LABS: EOSINOPHILS % (AUTO) 0.1 % (1.0-6.0); HEMATOCRIT 21.4 % (41-53); HEMOGLOBIN 7.4 g/dL (13.5-17.5); LYMPHOCYTES # (AUTO) 0.6 K/uL (1.0-4.8); LYMPHOCYTES % (AUTO) 7.2 % (22.0-44.0); MEAN CORPUSCULAR HEMOGLOBIN 31.4 pg (26.0-34.0); MEAN CORPUSCULAR HGB CONC 34.4 G/dL (31.0-37.0); MEAN CORPUSCULAR VOLUME 91 fL (80-100); MONOCYTES # (AUTO) 0.6 K/uL (0.1-1.0); MONOCYTES % (AUTO) 6.3 % (2.0-9.0); NEUTROPHILS # (AUTO) 7.7 K/uL (1.8-7.7); PLATELET COUNT (AUTO) 26 K/uL (150-450); RED BLOOD CELL COUNT(AUTO) 2.34 MIL/uL (4.50-5.90); RED CELL DISTRIBUTION WIDTH 19.1 % (11.5-14.5); WHITE BLOOD COUNT (AUTO) 8.9 K/uL (4.5-11.0)
[2017-02-03] MEDS: LACTULOSE 20 GM/30 ML SOLUTION UDCUP PO SCH ×2 (09:00→21:34)
[2017-02-03 09:03] LABS: NEUTROPHILS % (AUTO) 86.4 % (40.0-70.0)
[2017-02-03] MEDS: PHYTONADIONE 10 MG/1 ML AMP PO SCH (09:22)
[2017-02-03] MEDS: ALBUMIN HUMAN 25%-25GM/100ML 100 ML IV SCH ×2 (09:22→21:33)
[2017-02-03] MEDS: RIFAXIMIN 550 MG TABLET PO SCH ×2 (09:22→21:34)
[2017-02-03] MEDS: SPIRONOLACTONE 50 MG TABLET PO SCH (09:22)
[2017-02-03] MEDS: FUROSEMIDE 40 MG/4 ML VIAL IVP SCH ×2 (09:22→21:36)
[2017-02-03] MEDS: HYDROCORTISONE 2.5% 30 GM CREAM TP SCH ×3 (09:23→21:44)
[2017-02-03] MEDS: PrednisoLONE 15 MG/5 ML SOLUTION UDCUP PO SCH (09:23)
[2017-02-03 10:58] LABS: RBC MORPHOLOGY COMMENT ABNORMAL RBC MORPH
[2017-02-03] MEDS ORDERED: MAGNESIUM SULFATE 4 GM/WATER 100 ML IV PRN (11:00)
[2017-02-03] MEDS ORDERED: POTASSIUM CHLORIDE 20 MEQ ER TABLET PO PRN (11:00)
[2017-02-03] MEDS ORDERED: MAGNESIUM SULFATE 2 GM in DEXTROSE 5%-WATER 50 ML IV PRN (11:00)
[2017-02-03] MEDS ORDERED: MAGNESIUM OXIDE 400 MG TABLET PO ONE (11:00)
[2017-02-03 11:33] LABS: ALBUMIN 3.5 g/dL (3.4-5.0); ANION GAP 4 mmol/L (8-16); CALCIUM, TOTAL 7.8 mg/dL (8.8-10.5); CARBON DIOXIDE 31 mmol/L (22-29); CHLORIDE 90 mmol/L (98-107); CREATININE 0.74 mg/dL (0.60-1.30); GLOMERULAR FILTR. RATE CALC > 60 mL/min (>60); POTASSIUM 3.7 mmol/L (3.5-5.1); SODIUM SERUM 125 mmol/L (136-145); UREA NITROGEN, BLOOD 11 mg/dL (7-18)
[2017-02-03 11:35] LABS: GLUCOSE COMMENT 1 Repeated; GLUCOSE,POINT OF CARE 381 MG/DL (70-110)
[2017-02-03 11:47] LABS: GLUCOSE COMMENT 1 Repeated; GLUCOSE,POINT OF CARE 273 MG/DL (70-110)
[2017-02-03 12:54] LABS: INR 2.4 (0.9-1.1); PROTHROMBIN TIME 25.1 SEC (9.4-11.6)
[2017-02-03] MEDS ORDERED: SODIUM CHLORIDE 0.9% 1,000 ML IV ONE (13:51)
[2017-02-03] MEDS ORDERED: FUROSEMIDE 40 MG/4 ML VIAL IVP ONE (15:00)
[2017-02-03] MEDS ORDERED: SODIUM CHLORIDE 0.9% 100 ML ONE (18:15)
[2017-02-03 19:08] LABS: HEMOGLOBIN 6.9 g/dL (13.5-17.5)
[2017-02-03 19:09] LABS: HEMATOCRIT 19.7 % (41-53)
[2017-02-03] MEDS ORDERED: SODIUM CHLORIDE 0.9% 250 ML IV ONE ×2 (19:53→22:33)
[2017-02-03] MEDS: INSULIN DETEMIR 100 UNITS/ML SQ SCH (21:38)
[2017-02-03] MEDS ORDERED: INSULIN ASPART 100 UNITS/ML SQ ONE (21:45)
[2017-02-04] VITALS (35 sets, daily range): BP systolic 101–129; BP diastolic 50–68
[2017-02-04] MEDS: PANTOPRAZOLE SODIUM 80 MG in SODIUM CHLORIDE 0.9% 100 ML IV SCH ×3 (00:18→20:31)
[2017-02-04] MEDS ORDERED: SODIUM CHLORIDE 0.9% 50 ML ONE (05:42)
[2017-02-04] MEDS: CIPROFLOXACIN 400 MG/D5% WATER 200 ML IV SCH ×2 (05:48→11:05)
[2017-02-04] MEDS: INSULIN ASPART 100 UNITS/ML SQ PRN ×4 (06:07→21:20)
[2017-02-04 06:34] LABS: BASOPHILS % (AUTO) 0.1 % (0.0-2.0); EOSINOPHILS % (AUTO) 0.2 % (1.0-6.0); HEMATOCRIT 23.4 % (41-53); LYMPHOCYTES # (AUTO) 0.8 K/uL (1.0-4.8); LYMPHOCYTES % (AUTO) 9.6 % (22.0-44.0); MEAN CORPUSCULAR HGB CONC 34.1 G/dL (31.0-37.0); MEAN CORPUSCULAR VOLUME 91 fL (80-100); MONOCYTES # (AUTO) 0.6 K/uL (0.1-1.0); MONOCYTES % (AUTO) 7.1 % (2.0-9.0); NEUTROPHILS # (AUTO) 6.5 K/uL (1.8-7.7); PLATELET COUNT (AUTO) 24 K/uL (150-450); RED BLOOD CELL COUNT(AUTO) 2.56 MIL/uL (4.50-5.90); RED CELL DISTRIBUTION WIDTH 18.9 % (11.5-14.5); WHITE BLOOD COUNT (AUTO) 7.8 K/uL (4.5-11.0)
[2017-02-04 06:42] LABS: INR 2.2 (0.9-1.1); PROTHROMBIN TIME 22.8 SEC (9.4-11.6)
[2017-02-04 07:03] LABS: ANION GAP 8 mmol/L (8-16); CARBON DIOXIDE 31 mmol/L (22-29); CHLORIDE 91 mmol/L (98-107); CREATININE 0.72 mg/dL (0.60-1.30); GLOMERULAR FILTR. RATE CALC > 60 mL/min (>60); POTASSIUM 3.2 mmol/L (3.5-5.1); SODIUM SERUM 130 mmol/L (136-145); UREA NITROGEN, BLOOD 10 mg/dL (7-18)
[2017-02-04 08:34] LABS: RBC MORPHOLOGY COMMENT ABNORMAL RBC MORPH
[2017-02-04] MEDS ORDERED: SODIUM CHLORIDE 0.9% 100 ML ONE (08:56)
[2017-02-04] MEDS: ALBUMIN HUMAN 25%-25GM/100ML 100 ML IV SCH ×2 (08:59→21:08)
[2017-02-04] MEDS: FUROSEMIDE 40 MG/4 ML VIAL IVP SCH ×2 (09:00→20:59)
[2017-02-04] MEDS: LACTULOSE 20 GM/30 ML SOLUTION UDCUP PO SCH ×2 (09:00→21:11)
[2017-02-04] MEDS: HYDROCORTISONE 2.5% 30 GM CREAM TP SCH ×2 (09:00→15:41)
[2017-02-04] MEDS: SPIRONOLACTONE 50 MG TABLET PO SCH (09:01)
[2017-02-04] MEDS: RIFAXIMIN 550 MG TABLET PO SCH ×2 (09:01→21:13)
[2017-02-04] MEDS: PrednisoLONE 15 MG/5 ML SOLUTION UDCUP PO SCH (09:01)
[2017-02-04] MEDS: POTASSIUM CHL 10 MEQ/WATER 50 ML IV PRN ×3 (09:12→12:45)
[2017-02-04] MEDS: OXYGEN THERAPY IH SCH ×2 (12:46→20:31)
[2017-02-04] MEDS: POTASSIUM CHL 10 MEQ/WATER 50 ML IV SCH ×2 (14:07→15:38)
[2017-02-04] MEDS ORDERED: SODIUM CHLORIDE 0.9% 250 ML IV ONE ×4 (16:36→22:59)
[2017-02-04 17:33] LABS: GLUCOSE COMMENT 1 Received Meds; GLUCOSE,POINT OF CARE 383 MG/DL (70-110)
[2017-02-04 17:38] LABS: GLUCOSE COMMENT 1 Received Meds; GLUCOSE,POINT OF CARE 376 MG/DL (70-110)
[2017-02-04 17:38] LABS: GLUCOSE COMMENT 1 Received Meds; GLUCOSE,POINT OF CARE 310 MG/DL (70-110)
[2017-02-04 19:57] LABS: GLUCOSE,POINT OF CARE 370 MG/DL (70-110)
[2017-02-04] MEDS: INSULIN DETEMIR 100 UNITS/ML SQ SCH (21:21)
[2017-02-05] VITALS (29 sets, daily range): BP systolic 107–138; BP diastolic 51–98
[2017-02-05] MEDS: HYDROCORTISONE 2.5% 30 GM CREAM TP SCH ×4 (00:06→21:38)
[2017-02-05] MEDS ORDERED: SODIUM CHLORIDE 0.9% 100 ML ONE ×2 (05:52→18:19)
[2017-02-05] MEDS: CIPROFLOXACIN 400 MG/D5% WATER 200 ML IV SCH ×2 (06:02→18:14)
[2017-02-05] MEDS: PANTOPRAZOLE SODIUM 80 MG in SODIUM CHLORIDE 0.9% 100 ML IV SCH ×2 (06:11→15:34)
[2017-02-05] MEDS: INSULIN ASPART 100 UNITS/ML SQ PRN ×4 (06:23→21:37)
[2017-02-05 06:51] LABS: INR 1.9 (0.9-1.1); PROTHROMBIN TIME 20.4 SEC (9.4-11.6)
[2017-02-05 06:52] LABS: BASOPHILS % (AUTO) 0.3 % (0.0-2.0); EOSINOPHILS % (AUTO) 0.3 % (1.0-6.0); HEMOGLOBIN 7.2 g/dL (13.5-17.5); LYMPHOCYTES # (AUTO) 0.7 K/uL (1.0-4.8); LYMPHOCYTES % (AUTO) 9.7 % (22.0-44.0); MEAN CORPUSCULAR HEMOGLOBIN 31.1 pg (26.0-34.0); MEAN CORPUSCULAR HGB CONC 34.2 G/dL (31.0-37.0); MEAN CORPUSCULAR VOLUME 91 fL (80-100); MONOCYTES # (AUTO) 0.6 K/uL (0.1-1.0); MONOCYTES % (AUTO) 7.7 % (2.0-9.0); NEUTROPHILS # (AUTO) 6.3 K/uL (1.8-7.7); PLATELET COUNT (AUTO) 32 K/uL (150-450); RED BLOOD CELL COUNT(AUTO) 2.31 MIL/uL (4.50-5.90); WHITE BLOOD COUNT (AUTO) 7.7 K/uL (4.5-11.0)
[2017-02-05 06:54] LABS: ALANINE AMINOTRANSFERASE 28 U/L (12-78); ALBUMIN 3.5 g/dL (3.4-5.0); ANION GAP 7 mmol/L (8-16); ASPARTATE AMINOTRANSFERASE 31 U/L (15-37); CALCIUM, TOTAL 8.2 mg/dL (8.8-10.5); CARBON DIOXIDE 31 mmol/L (22-29); CHLORIDE 91 mmol/L (98-107); CREATININE 0.75 mg/dL (0.60-1.30); GLOMERULAR FILTR. RATE CALC > 60 mL/min (>60); POTASSIUM 3.5 mmol/L (3.5-5.1); SODIUM SERUM 129 mmol/L (136-145); TOTAL PROTEIN, SERUM 5.2 g/dL (6.4-8.2); UREA NITROGEN, BLOOD 12 mg/dL (7-18)
[2017-02-05] MEDS ORDERED: SODIUM CHLORIDE 0.9% 250 ML IV ONE ×3 (08:38→15:19)
[2017-02-05] MEDS: FUROSEMIDE 40 MG/4 ML VIAL IVP SCH (09:06)
[2017-02-05] MEDS: LACTULOSE 20 GM/30 ML SOLUTION UDCUP PO SCH (09:08)
[2017-02-05] MEDS: SPIRONOLACTONE 50 MG TABLET PO SCH (09:09)
[2017-02-05] MEDS: RIFAXIMIN 550 MG TABLET PO SCH ×2 (09:09→21:30)
[2017-02-05] MEDS: PrednisoLONE 15 MG/5 ML SOLUTION UDCUP PO SCH (09:10)
[2017-02-05] MEDS ORDERED: MAGNESIUM SULFATE 1 GM in DEXTROSE 5%-WATER 50 ML IV ONE (10:00)
[2017-02-05] MEDS: ALBUMIN HUMAN 25%-25GM/100ML 100 ML IV SCH ×2 (10:24→21:30)
[2017-02-05 11:01] LABS: RBC MORPHOLOGY COMMENT ABNORMAL RBC MORPH
[2017-02-05 20:13] LABS: GLUCOSE COMMENT 1 Doctor Notified; GLUCOSE COMMENT 2 Received Meds; GLUCOSE,POINT OF CARE 423 MG/DL (70-110)
[2017-02-05 20:13] LABS: GLUCOSE COMMENT 1 Received Meds; GLUCOSE,POINT OF CARE 271 MG/DL (70-110)
[2017-02-05 20:13] LABS: GLUCOSE COMMENT 1 Received Meds; GLUCOSE,POINT OF CARE 387 MG/DL (70-110)
[2017-02-05 20:13] LABS: GLUCOSE COMMENT 1 Received Meds; GLUCOSE,POINT OF CARE 197 MG/DL (70-110)
[2017-02-05 20:14] LABS: GLUCOSE,POINT OF CARE 331 MG/DL (70-110)
[2017-02-05 20:18] LABS: GLUCOSE,POINT OF CARE 292 MG/DL (70-110)
[2017-02-05 20:18] LABS: GLUCOSE COMMENT 1 Received Meds; GLUCOSE,POINT OF CARE 254 MG/DL (70-110)
[2017-02-05] MEDS: OXYGEN THERAPY IH SCH ×2 (21:31→21:39)
[2017-02-05] MEDS: INSULIN DETEMIR 100 UNITS/ML SQ SCH (21:38)
[2017-02-06 00:04] VITALS: BP 119/58
[2017-02-06] MEDS: PANTOPRAZOLE SODIUM 80 MG in SODIUM CHLORIDE 0.9% 100 ML IV SCH ×3 (02:30→23:15)
[2017-02-06 03:55] VITALS: BP 117/62
[2017-02-06 06:22] LABS: BASOPHILS # (AUTO) 0.02 K/uL (0.00-0.20); BASOPHILS % (AUTO) 0.4 % (0.0-2.0); EOSINOPHILS # (AUTO) 0.01 K/uL (0.00-0.70); EOSINOPHILS % (AUTO) 0.16 % (1.0-6.0); LYMPHOCYTES # (AUTO) 0.9 K/uL (1.0-4.8); LYMPHOCYTES % (AUTO) 14.9 % (22.0-44.0); MEAN CORPUSCULAR HEMOGLOBIN 31.4 pg (26.0-34.0); MEAN CORPUSCULAR HGB CONC 33.9 G/dL (31.0-37.0); MEAN CORPUSCULAR VOLUME 93 fL (80-100); MONOCYTES # (AUTO) 0.6 K/uL (0.1-1.0); MONOCYTES % (AUTO) 10.1 % (2.0-9.0); NEUTROPHILS # (AUTO) 4.4 K/uL (1.8-7.7); NEUTROPHILS % (AUTO) 74.5 % (40.0-70.0); PLATELET COUNT (AUTO) 36 K/uL (150-450); RED BLOOD CELL COUNT(AUTO) 2.24 MIL/uL (4.50-5.90); RED CELL DISTRIBUTION WIDTH 19.4 % (11.5-14.5); WHITE BLOOD COUNT (AUTO) 5.9 K/uL (4.5-11.0)
[2017-02-06 06:30] LABS: INR 2.2 (0.9-1.1); PROTHROMBIN TIME 23.2 SEC (9.4-11.6)
[2017-02-06] MEDS: CIPROFLOXACIN 400 MG/D5% WATER 200 ML IV SCH ×2 (06:30→17:13)
[2017-02-06 06:32] LABS: ALANINE AMINOTRANSFERASE 29 U/L (12-78); ALBUMIN 3.6 g/dL (3.4-5.0); ANION GAP 7 mmol/L (8-16); ASPARTATE AMINOTRANSFERASE 27 U/L (15-37); BILIRUBIN,TOTAL 8.8 mg/dL (0.1-1.0); CALCIUM, TOTAL 8.4 mg/dL (8.8-10.5); CARBON DIOXIDE 31 mmol/L (22-29); CHLORIDE 90 mmol/L (98-107); CREATININE 0.74 mg/dL (0.60-1.30); GLOMERULAR FILTR. RATE CALC > 60 mL/min (>60); PHOSPHORUS 2.4 mg/dL (2.5-4.9); POTASSIUM 3.5 mmol/L (3.5-5.1); SODIUM SERUM 128 mmol/L (136-145); TOTAL PROTEIN, SERUM 5.7 g/dL (6.4-8.2); UREA NITROGEN, BLOOD 11 mg/dL (7-18)
[2017-02-06] MEDS: INSULIN ASPART 100 UNITS/ML SQ PRN ×4 (06:32→21:00)
[2017-02-06 06:48] LABS: GLUCOSE,POINT OF CARE 216 MG/DL (70-110)
[2017-02-06 06:48] LABS: GLUCOSE COMMENT 1 Doctor Notified; GLUCOSE COMMENT 2 Received Meds; GLUCOSE,POINT OF CARE 413 MG/DL (70-110)
[2017-02-06 06:55] LABS: HEMATOCRIT 20.7 % (41-53)
[2017-02-06 07:27] VITALS: BP 117/61
[2017-02-06] MEDS: ALBUMIN HUMAN 25%-25GM/100ML 100 ML IV SCH ×2 (08:30→20:53)
[2017-02-06] MEDS: SPIRONOLACTONE 50 MG TABLET PO SCH (08:30)
[2017-02-06] MEDS: RIFAXIMIN 550 MG TABLET PO SCH ×2 (08:31→20:51)
[2017-02-06] MEDS: PrednisoLONE 15 MG/5 ML SOLUTION UDCUP PO SCH (08:31)
[2017-02-06] MEDS: HYDROCORTISONE 2.5% 30 GM CREAM TP SCH ×3 (08:32→20:51)
[2017-02-06] MEDS: POTASSIUM PHOS/SODIUM PHOS MIXTURE 1 POWDER PACKET PO SCH ×3 (09:00→20:50)
[2017-02-06] MEDS ORDERED: MAGNESIUM SULFATE 1 GM in DEXTROSE 5%-WATER 50 ML IV ONE (09:00)
[2017-02-06] MEDS: FUROSEMIDE 40 MG/4 ML VIAL IVP SCH (11:56)
[2017-02-06 12:03] VITALS: BP 113/61
[2017-02-06 15:03] LABS: GLUCOSE,POINT OF CARE 276 MG/DL (70-110)
[2017-02-06 15:22] VITALS: BP 109/56
[2017-02-06 19:35] VITALS: BP 110/53
[2017-02-06] MEDS: OXYGEN THERAPY IH SCH (20:00)
[2017-02-06] MEDS: INSULIN DETEMIR 100 UNITS/ML SQ SCH (20:59)
[2017-02-07] VITALS (7 sets, daily range): BP systolic 105–155; BP diastolic 50–71
[2017-02-07] MEDS: CIPROFLOXACIN 400 MG/D5% WATER 200 ML IV SCH ×2 (06:08→17:06)
[2017-02-07] MEDS: INSULIN ASPART 100 UNITS/ML SQ PRN ×4 (06:09→20:44)
[2017-02-07 06:18] LABS: ANION GAP 6 mmol/L (8-16); CARBON DIOXIDE 29 mmol/L (22-29); CHLORIDE 91 mmol/L (98-107); CREATININE 0.74 mg/dL (0.60-1.30); GLOMERULAR FILTR. RATE CALC > 60 mL/min (>60); POTASSIUM 3.6 mmol/L (3.5-5.1); SODIUM SERUM 126 mmol/L (136-145); UREA NITROGEN, BLOOD 13 mg/dL (7-18)
[2017-02-07 06:22] LABS: BASOPHILS % (AUTO) 0.4 % (0.0-2.0); EOSINOPHILS % (AUTO) 0.4 % (1.0-6.0); HEMOGLOBIN 7.2 g/dL (13.5-17.5); LYMPHOCYTES # (AUTO) 0.7 K/uL (1.0-4.8); LYMPHOCYTES % (AUTO) 16.6 % (22.0-44.0); MEAN CORPUSCULAR HEMOGLOBIN 31.7 pg (26.0-34.0); MEAN CORPUSCULAR HGB CONC 34.6 G/dL (31.0-37.0); MEAN CORPUSCULAR VOLUME 91 fL (80-100); MONOCYTES # (AUTO) 0.4 K/uL (0.1-1.0); MONOCYTES % (AUTO) 10.5 % (2.0-9.0); NEUTROPHILS # (AUTO) 2.9 K/uL (1.8-7.7); NEUTROPHILS % (AUTO) 72.1 % (40.0-70.0); PLATELET COUNT (AUTO) 39 K/uL (150-450); RED BLOOD CELL COUNT(AUTO) 2.27 MIL/uL (4.50-5.90); WHITE BLOOD COUNT (AUTO) 4.1 K/uL (4.5-11.0)
[2017-02-07 06:54] LABS: HEMATOCRIT 20.8 % (41-53)
[2017-02-07 07:13] LABS: RBC MORPHOLOGY COMMENT ABNORMAL RBC MORPH
[2017-02-07] MEDS: PANTOPRAZOLE SODIUM 40 MG/VIAL IVP SCH ×2 (08:57→20:42)
[2017-02-07] MEDS: ALBUMIN HUMAN 25%-25GM/100ML 100 ML IV SCH ×2 (08:57→20:41)
[2017-02-07] MEDS: SPIRONOLACTONE 50 MG TABLET PO SCH (08:57)
[2017-02-07] MEDS: PrednisoLONE 15 MG/5 ML SOLUTION UDCUP PO SCH (08:58)
[2017-02-07] MEDS: RIFAXIMIN 550 MG TABLET PO SCH ×2 (09:00→20:42)
[2017-02-07] MEDS: PHYTONADIONE 10 MG/1 ML AMP PO SCH (09:01)
[2017-02-07] MEDS: FUROSEMIDE 40 MG/4 ML VIAL IVP SCH (11:38)
[2017-02-07] MEDS: MAGNESIUM OXIDE 400 MG TABLET PO PRN (17:05)
[2017-02-07] MEDS: OXYGEN THERAPY IH SCH (20:00)
[2017-02-07 20:03] LABS: GLUCOSE COMMENT 1 Received Meds; GLUCOSE,POINT OF CARE 392 MG/DL (70-110)
[2017-02-07] MEDS: INSULIN DETEMIR 100 UNITS/ML SQ SCH (20:43)
[2017-02-08] MEDS: MAGNESIUM OXIDE 400 MG TABLET PO PRN ×3 (00:13→09:19)
[2017-02-08 04:02] LABS: GLUCOSE,POINT OF CARE 354 MG/DL (70-110)
[2017-02-08 04:17] LABS: GLUCOSE,POINT OF CARE 379 MG/DL (70-110)
[2017-02-08 04:17] LABS: GLUCOSE,POINT OF CARE 363 MG/DL (70-110)
[2017-02-08 04:18] LABS: GLUCOSE,POINT OF CARE 290 MG/DL (70-110)
[2017-02-08 04:18] LABS: GLUCOSE,POINT OF CARE 211 MG/DL (70-110)
[2017-02-08 04:59] VITALS: BP 119/63
[2017-02-08] MEDS: CIPROFLOXACIN 400 MG/D5% WATER 200 ML IV SCH ×2 (05:44→17:40)
[2017-02-08] MEDS: INSULIN ASPART 100 UNITS/ML SQ PRN ×4 (05:46→20:56)
[2017-02-08 06:23] LABS: INR 2.3 (0.9-1.1); PROTHROMBIN TIME 24.8 SEC (9.4-11.6)
[2017-02-08 06:28] LABS: MEAN CORPUSCULAR VOLUME 91 fL (80-100); PLATELET COUNT (AUTO) 42 K/uL (150-450); RED BLOOD CELL COUNT(AUTO) 2.19 MIL/uL (4.50-5.90)
[2017-02-08 06:45] LABS: ALANINE AMINOTRANSFERASE 24 U/L (12-78); ALBUMIN 3.6 g/dL (3.4-5.0); ANION GAP 6 mmol/L (8-16); ASPARTATE AMINOTRANSFERASE 27 U/L (15-37); BILIRUBIN,TOTAL 8.9 mg/dL (0.1-1.0); CALCIUM, TOTAL 8.3 mg/dL (8.8-10.5); CARBON DIOXIDE 29 mmol/L (22-29); CHLORIDE 94 mmol/L (98-107); CREATININE 0.65 mg/dL (0.60-1.30); GLOMERULAR FILTR. RATE CALC > 60 mL/min (>60); POTASSIUM 3.6 mmol/L (3.5-5.1); SODIUM SERUM 129 mmol/L (136-145); TOTAL PROTEIN, SERUM 5.6 g/dL (6.4-8.2); UREA NITROGEN, BLOOD 12 mg/dL (7-18)
[2017-02-08 07:16] VITALS: BP 128/69
[2017-02-08] MEDS: OXYGEN THERAPY IH SCH ×2 (08:00→20:00)
[2017-02-08 08:51] LABS: LYMPHOCYTES % (MANUAL) 33 % (22-44); TOTAL CELLS COUNTED 100
[2017-02-08 08:52] LABS: RBC MORPHOLOGY COMMENT ABNORMAL R
[2017-02-08] MEDS: ALBUMIN HUMAN 25%-25GM/100ML 100 ML IV SCH ×2 (09:17→20:49)
[2017-02-08] MEDS: PANTOPRAZOLE SODIUM 40 MG/VIAL IVP SCH ×2 (09:19→20:49)
[2017-02-08] MEDS: SPIRONOLACTONE 50 MG TABLET PO SCH (09:19)
[2017-02-08] MEDS: PrednisoLONE 15 MG/5 ML SOLUTION UDCUP PO SCH (09:20)
[2017-02-08] MEDS: RIFAXIMIN 550 MG TABLET PO SCH ×2 (09:20→20:50)
[2017-02-08] MEDS ORDERED: POTASSIUM CHLORIDE 20 MEQ ER TABLET PO ONE (10:00)
[2017-02-08] MEDS ORDERED: MAGNESIUM SULFATE 1 GM in DEXTROSE 5%-WATER 50 ML IV ONE (10:00)
[2017-02-08] MEDS: FUROSEMIDE 40 MG/4 ML VIAL IVP SCH (11:00)
[2017-02-08 11:23] VITALS: BP 133/67
[2017-02-08] MEDS ORDERED: ACETAMINOPHEN 325 MG TABLET PO PRN (13:45)
[2017-02-08 15:21] VITALS: BP 119/72
[2017-02-08 20:00] VITALS: BP 120/63
[2017-02-08] MEDS: INSULIN DETEMIR 100 UNITS/ML SQ SCH (20:56)
[2017-02-08 23:44] VITALS: BP 118/60
[2017-02-09] VITALS (20 sets, daily range): BP systolic 114–141; BP diastolic 55–82
[2017-02-09 02:33] LABS: GLUCOSE,POINT OF CARE 340 MG/DL (70-110)
[2017-02-09 04:53] LABS: GLUCOSE COMMENT 1 Received Meds; GLUCOSE,POINT OF CARE 259 MG/DL (70-110)
[2017-02-09 04:58] LABS: GLUCOSE COMMENT 1 Received Meds; GLUCOSE,POINT OF CARE 382 MG/DL (70-110)
[2017-02-09] MEDS: CIPROFLOXACIN 400 MG/D5% WATER 200 ML IV SCH ×2 (05:45→18:07)
[2017-02-09] MEDS: INSULIN ASPART 100 UNITS/ML SQ PRN ×4 (05:49→21:07)
[2017-02-09 06:17] LABS: BASOPHILS % (AUTO) 0.3 % (0.0-2.0); EOSINOPHILS % (AUTO) 0.8 % (1.0-6.0); LYMPHOCYTES % (AUTO) 32.5 % (22.0-44.0); MEAN CORPUSCULAR HEMOGLOBIN 31.7 pg (26.0-34.0); MEAN CORPUSCULAR HGB CONC 34.7 G/dL (31.0-37.0); MEAN CORPUSCULAR VOLUME 91 fL (80-100); MONOCYTES # (AUTO) 0.5 K/uL (0.1-1.0); MONOCYTES % (AUTO) 16.5 % (2.0-9.0); NEUTROPHILS # (AUTO) 1.5 K/uL (1.8-7.7); NEUTROPHILS % (AUTO) 49.9 % (40.0-70.0); PLATELET COUNT (AUTO) 49 K/uL (150-450); RED BLOOD CELL COUNT(AUTO) 2.17 MIL/uL (4.50-5.90); RED CELL DISTRIBUTION WIDTH 20.7 % (11.5-14.5); WHITE BLOOD COUNT (AUTO) 2.9 K/uL (4.5-11.0)
[2017-02-09 07:46] LABS: HEMOGLOBIN 6.9 g/dL (13.5-17.5)
[2017-02-09 07:47] LABS: HEMATOCRIT 19.8 % (41-53); RBC MORPHOLOGY COMMENT ABNORMAL RBC MORPH
[2017-02-09 07:58] LABS: GLUCOSE,POINT OF CARE 141 MG/DL (70-110)
[2017-02-09] MEDS: OXYGEN THERAPY IH SCH ×2 (10:04→20:00)
[2017-02-09] MEDS: PANTOPRAZOLE SODIUM 40 MG/VIAL IVP SCH ×2 (10:05→21:08)
[2017-02-09] MEDS: SPIRONOLACTONE 50 MG TABLET PO SCH (10:05)
[2017-02-09] MEDS: LACTULOSE 20 GM/30 ML SOLUTION UDCUP PO SCH (10:05)
[2017-02-09] MEDS: RIFAXIMIN 550 MG TABLET PO SCH ×2 (10:06→21:07)
[2017-02-09] MEDS: PrednisoLONE 15 MG/5 ML SOLUTION UDCUP PO SCH (10:06)
[2017-02-09] MEDS ORDERED: DiphenhydrAMINE HCL 25 MG CAPSULE PO ONE (10:30)
[2017-02-09 11:21] LABS: ANION GAP 7 mmol/L (8-16); CALCIUM, TOTAL 8.6 mg/dL (8.8-10.5); CARBON DIOXIDE 27 mmol/L (22-29); CHLORIDE 91 mmol/L (98-107); CREATININE 0.66 mg/dL (0.60-1.30); GLOMERULAR FILTR. RATE CALC > 60 mL/min (>60); POTASSIUM 3.7 mmol/L (3.5-5.1); SODIUM SERUM 125 mmol/L (136-145); UREA NITROGEN, BLOOD 12 mg/dL (7-18)
[2017-02-09] MEDS ORDERED: SODIUM CHLORIDE 0.9% 250 ML IV ONE (12:04)
[2017-02-09] MEDS: MAGNESIUM OXIDE 400 MG TABLET PO PRN (16:21)
[2017-02-09 18:37] LABS: GLUCOSE COMMENT 1 Received Meds; GLUCOSE,POINT OF CARE 301 MG/DL (70-110)
[2017-02-09 20:08] LABS: GLUCOSE,POINT OF CARE 240 MG/DL (70-110)
[2017-02-09] MEDS: INSULIN DETEMIR 100 UNITS/ML SQ SCH (21:07)
[2017-02-10 04:18] VITALS: BP 124/60
[2017-02-10] MEDS: CIPROFLOXACIN 400 MG/D5% WATER 200 ML IV SCH ×2 (04:58→17:15)
[2017-02-10] MEDS: INSULIN ASPART 100 UNITS/ML SQ PRN ×3 (06:08→17:45)
[2017-02-10 07:00] LABS: EOSINOPHILS % (AUTO) 0.5 % (1.0-6.0); HEMATOCRIT 24.6 % (41-53); HEMOGLOBIN 8.5 g/dL (13.5-17.5); LYMPHOCYTES % (AUTO) 32.1 % (22.0-44.0); MEAN CORPUSCULAR HEMOGLOBIN 31.5 pg (26.0-34.0); MEAN CORPUSCULAR HGB CONC 34.3 G/dL (31.0-37.0); MEAN CORPUSCULAR VOLUME 92 fL (80-100); MONOCYTES # (AUTO) 0.5 K/uL (0.1-1.0); MONOCYTES % (AUTO) 14.5 % (2.0-9.0); NEUTROPHILS # (AUTO) 1.7 K/uL (1.8-7.7); NEUTROPHILS % (AUTO) 52.9 % (40.0-70.0); PLATELET COUNT (AUTO) 51 K/uL (150-450); RED BLOOD CELL COUNT(AUTO) 2.69 MIL/uL (4.50-5.90); WHITE BLOOD COUNT (AUTO) 3.2 K/uL (4.5-11.0)
[2017-02-10 07:16] VITALS: BP 123/65
[2017-02-10] MEDS: OXYGEN THERAPY IH SCH (08:00)
[2017-02-10] MEDS: SPIRONOLACTONE 50 MG TABLET PO SCH (08:55)
[2017-02-10] MEDS: PANTOPRAZOLE SODIUM 40 MG/VIAL IVP SCH (08:55)
[2017-02-10] MEDS: LACTULOSE 20 GM/30 ML SOLUTION UDCUP PO SCH (08:56)
[2017-02-10] MEDS: PrednisoLONE 15 MG/5 ML SOLUTION UDCUP PO SCH (08:58)
[2017-02-10] MEDS: PHYTONADIONE 10 MG/1 ML AMP PO SCH (08:58)
[2017-02-10] MEDS: RIFAXIMIN 550 MG TABLET PO SCH (08:58)
[2017-02-10] MEDS ORDERED: MULTIVITAMINS WITH MINERALS, THERAPEUTIC TABLET PO SCH (09:00)
[2017-02-10] MEDS ORDERED: FUROSEMIDE 80 MG TABLET PO SCH (09:00)
[2017-02-10 10:12] LABS: RBC MORPHOLOGY COMMENT ABNORMAL RBC MORPH
[2017-02-10 11:39] VITALS: BP 133/72
[2017-02-10 12:23] LABS: GLUCOSE COMMENT 1 Received Meds; GLUCOSE,POINT OF CARE 191 MG/DL (70-110)
[2017-02-10] MEDS ORDERED: FURO20 PO (13:24)
[2017-02-10] MEDS ORDERED: INSU100V12 SQ (13:25)
[2017-02-10] MEDS ORDERED: PANT40TA25 PO (13:26)
[2017-02-10] MEDS ORDERED: LACT30L PO (13:27)
[2017-02-10] MEDS ORDERED: EPOE20006 SQ (13:28)
[2017-02-10] MEDS ORDERED: PHYT5 PO ×2 (13:30→13:31)
[2017-02-10] MEDS ORDERED: PRED15SO PO ×3 (13:33→13:35)
[2017-02-10] MEDS ORDERED: RIFAX550 PO (13:38)
[2017-02-10] MEDS ORDERED: SPIR50 PO (13:40)
[2017-02-10] MEDS ORDERED: BISA5TAB12 PO (13:41)
[2017-02-10 14:21] VITALS: BP 132/70
[2017-02-10] MEDS ORDERED: BUMETANIDE 0.25 MG/ML 10 ML VIAL IVP ONE (15:00)
[2017-02-10 15:31] VITALS: BP 140/80
[2017-02-12 20:53] LABS: GLUCOSE,POINT OF CARE 163 MG/DL (70-110)
[2017-02-12 20:53] LABS: GLUCOSE COMMENT 1 Received Meds; GLUCOSE,POINT OF CARE 295 MG/DL (70-110)
[2017-02-12 20:53] LABS: GLUCOSE COMMENT 1 Received Meds; GLUCOSE,POINT OF CARE 260 MG/DL (70-110)
[2017-02-12 20:54] LABS: GLUCOSE COMMENT 1 Received Meds; GLUCOSE,POINT OF CARE 368 MG/DL (70-110)
== END 2017-02-10 18:20 | disposition home or self-care (01) | DRG 226 ==
LOC: EMS 10:46 → ICU 13:28 → 5N 01-28 12:30 → ICU 01-29 03:25 → 5S 02-02 15:25
PROVIDERS: ADMIT Internal Medicine Geriatric Medicine; ATTEND Internal Medicine Geriatric Medicine
PROC: 0DJD8ZZ Inspection of Lower Intestinal Tract, Via Natural or Artificial Opening Endoscopic (ICD-10-PCS; 2017-01-27)
PROC: 0W3P8ZZ Control Bleeding in Gastrointestinal Tract, Via Natural or Artificial Opening Endoscopic (ICD-10-PCS; 2017-01-27)
PROC: 0DJ08ZZ Inspection of Upper Intestinal Tract, Via Natural or Artificial Opening Endoscopic (ICD-10-PCS; principal; 2017-01-27 08:00)
PROC: 0DJD8ZZ Inspection of Lower Intestinal Tract, Via Natural or Artificial Opening Endoscopic (ICD-10-PCS; 2017-01-29)
PROC: 30233L1 Transfusion of Nonautologous Fresh Plasma into Peripheral Vein, Percutaneous Approach (ICD-10-PCS; 2017-01-29)
PROC: 30233N1 Transfusion of Nonautologous Red Blood Cells into Peripheral Vein, Percutaneous Approach (ICD-10-PCS; 2017-01-29)
PROC: 30233K1 Transfusion of Nonautologous Frozen Plasma into Peripheral Vein, Percutaneous Approach (ICD-10-PCS; 2017-01-29)
PROC: 06LY3ZC Occlusion of Hemorrhoidal Plexus, Percutaneous Approach (ICD-10-PCS; 2017-01-30)
PROC: 0DQQXZZ Repair Anus, External Approach (ICD-10-PCS; 2017-01-30)
PROC: B4151ZZ Fluoroscopy of Inferior Mesenteric Artery using Low Osmolar Contrast (ICD-10-PCS; 2017-01-31)
PROC: B41J1ZZ Fluoroscopy of Other Lower Arteries using Low Osmolar Contrast (ICD-10-PCS; 2017-01-31)
PROC: B4141ZZ Fluoroscopy of Superior Mesenteric Artery using Low Osmolar Contrast (ICD-10-PCS; 2017-01-31)
DX: K92.2 Gastrointestinal hemorrhage, unspecified (principal); I81 Portal vein thrombosis; E43 Unspecified severe protein-calorie malnutrition; N17.9 Acute kidney failure, unspecified; D68.9 Coagulation defect, unspecified; I11.9 Hypertensive heart disease without heart failure; I10 Essential (primary) hypertension; I85.00 Esophageal varices without bleeding; I85.10 Secondary esophageal varices without bleeding; K76.6 Portal hypertension; E87.1 Hypo-osmolality and hyponatremia; D69.6 Thrombocytopenia, unspecified; I48.92 Unspecified atrial flutter; E83.42 Hypomagnesemia; K72.90 Hepatic failure, unspecified without coma; E83.39 Other disorders of phosphorus metabolism; D53.9 Nutritional anemia, unspecified; E11.9 Type 2 diabetes mellitus without complications; D72.829 Elevated white blood cell count, unspecified; F10.21 Alcohol dependence, in remission; F10.288 Alcohol dependence with other alcohol-induced disorder; I48.0 Paroxysmal atrial fibrillation; J98.11 Atelectasis; K31.89 Other diseases of stomach and duodenum; K60.2 Anal fissure, unspecified; K64.8 Other hemorrhoids; K70.30 Alcoholic cirrhosis of liver without ascites; Q61.2 Polycystic kidney, adult type; Z82.71 Family history of polycystic kidney; Z83.3 Family history of diabetes mellitus; Z88.0 Allergy status to penicillin
CPT/HCPCS: 36245; 36430; 37243; 76700; 76937; 82105; 82270; 82306; 82570; 82607; 82746; 82805; 82962; 83036; 83735; 83935; 84100; 84132; 84133; 84300; 84439; 85007; 85014; 85018; 85362; 85379; 85384; 86850; 86900; 86901; 86920; 86927; 87081; 87338; 93005; 93925; 96374; 97110; 97116; 97162; 97164; 97166; 97530; 97535; 99291; C9113; J0171; J0330; J0690; J0744; J1200; J1644; J1815; J1940; J2250; J2354; J2370; J2405; J2704; J2765; J3010; J3430; J3475; J3480; J3490; J7030; J7040; J7050; J7060; J7120; J7510; P9016; P9017; P9035; P9046; P9059; Q9967